=== PATIENT | female | born 1945 | race Caucasian/White ===

== ENCOUNTER → 2017-02-10 | Outpatient (CLI) | payer OTHER | LOC: BHFA 15:00 | PROVIDERS: ATTEND Internal Medicine Cardiovascular Disease | DX: R68.89 Other general symptoms and signs (principal) ==

== ENCOUNTER 2017-05-08 19:13 | Emergency (ER) | payer OTHER ==
[2017-05-08 19:24] VITALS: RESP 16; TEMP 98.2
--- NOTE | 2017-05-08 20:33 | EDPHY ---
H & P Stated Complaint: [facility] fall 05/06; Hx of osteoporosis, sent by PCP Time Seen by Provider: 05/08/17 20:21 HPI/ROS: CHIEF COMPLAINT: Fall HISTORY OF PRESENT ILLNESS: 72-year-old female with multiple medical comorbidities including osteoporosis, states that 2 days ago while she was walking down some bleachers she slipped and fell backward onto her right hip, she is complaining of right hip pain the general location right greater trochanter, right shoulder pain, right anterior lower rib pain, thoracic and lumbar pain. No pelvic pain, no pubic ramus pain. No head injury. No dyspnea. No abdominal pain. No nausea or vomiting. No peripheral paresthesia , weakness, numbness. No midline C-spine pain. PRIMARY CARE PROVIDER: Dr. Dixon REVIEW OF SYSTEMS: A ten point review of systems was performed and is negative with the exception of the items mentioned in the HPI PAST MEDICAL/SURGICAL HISTORY: Osteoporosis. Cholecystectomy. Kyphoplasty. No anticoagulant use SOCIAL HISTORY: PHYSICAL EXAM 1) GENERAL: Well-developed, well-nourished, alert and oriented. Appears to be in no acute distress. Answering questions appropriately. 2) HEAD: Normocephalic, atraumatic 3) HEENT: Pupils equal, round, reactive to light bilaterally. Negative Horners. Nasopharynx, oropharynx, clear. No deformity or angulation of nose. No septal hematoma. No rhinorrhea. No oral trauma. Ears bilaterally with normal tympanic membranes. No hemotympanum. No fluid or blood in the external auditory canal. No raccoon eyes. No Wilson sign. Teeth are normally aligned with no gross malocclusion, TMJ bilaterally nontender, facial bones nontender including the zygomatic arch, maxilla mandible. 4) NECK: No cervical collar is on. Posterior cervical spine is nontender, no stepoff, no effusion. Full range of motion which does not elicit any midline cervical spine pain, no posterior midline tenderness, no step-off. 5) LUNGS: Clear to auscultation bilaterally, no wheezes, no rhonchi, no retractions. No obvious signs of trauma. Is tender to palpation right anterior axillary line lower ribs no visible signs of trauma. No flaring, no grunting. Moving symmetrically. No crepitus. 6) HEART: Regular rate and rhythm, 7) ABDOMEN: No guarding, no rebound, no focal tenderness, no peritoneal signs, no signs of trauma, no ecchymosis 8) MUSCULOSKELETAL: Tender to palpation right anterior shoulder with full range of motion albeit with pain with range of motion. No step-off. Remainder of right upper extremity is nontender. Right scapula nontender. Tender to palpation right greater trochanter. No deformity no angulation no shortening no malrotation. Distal DP PT pulses present and brisk. Soft compartments. Remainder of right femur nontender. Pubic ramus bilaterally nontender. Moving all extremities, no focal areas of tenderness, no obvious trauma. 9) BACK: Patient unable to fully differentiate true midline versus just lateral of midline mid thoracic and mid lumbar pain. No visible signs of trauma. , no fluctuance, no step-off, no obvious trauma, no visual or palpable abnormality. 10) SKIN: No laceration. No abrasion DIFFERENTIAL DIAGNOSIS: in no particular order including but not limited to fracture, sprain, dislocation - Personal History Current Tetanus/Diphtheria Vaccine: No - Medical/Surgical History Hx Asthma: No Hx Chronic Respiratory Disease: No Hx Diabetes: No Hx Cardiac Disease: No Hx Renal Disease: No Hx Cirrhosis: No Hx Alcoholism: No Hx HIV/AIDS: No Hx Splenectomy or Spleen Trauma: No Other PMH: PSHx: kyphoplasty, cholecystectomy, eyelid, cataract, hysterectomy, other unk. PMHx: osteoporosis, Kinney's esophagus, hypothyroid, peroneal nerve surface neuropathy - Social History Smoking Status: Never smoked Constitutional: Initial Vital Signs Temperature (C) 36.8 C 05/08/17 19:17 Heart Rate 93 05/08/17 19:17 Respiratory Rate 16 05/08/17 19:17 Blood Pressure 166/100 H 05/08/17 19:17 O2 Sat (%) 97 05/08/17 19:17 O2 Delivery Mode Room Air Allergies/Adverse Reactions: diazepam [From Valium] Allergy (Intermediate, Verified 07/06/12 15:38) Hives aspirin [From Percodan] Allergy (Verified 07/06/12 16:54) HIVES/LIGHTHEADEDNESS buprenorphine [From Butrans] Allergy (Verified 07/06/12 15:39) MIGRAINES cimetidine Allergy (Verified 07/06/12 16:45) STOMACH CRAMPS clonazepam [From Klonopin] Allergy (Verified 07/06/12 16:51) GI PROB codeine [Codeine] Allergy (Verified 07/06/12 15:38) MIGRAINES doxepin HCl [From Sinequan] Allergy (Verified 07/06/12 16:56) HALLUCINATIONS duloxetine HCl [From Cymbalta] Allergy (Verified 07/06/12 16:48) Diarrhea metaxalone [From Skelaxin] Allergy (Verified 07/06/12 16:56) MIGRAINES milnacipran HCl [From Savella] Allergy (Verified 07/06/12 16:55) AFFECTED MEMORY NSAIDS (Non-Steroidal Anti-Inflamma Allergy (Verified 07/06/12 15:39) STOMACH PROB oxycodone HCl [From Percodan] Allergy (Verified 07/06/12 16:54) HIVES/LIGHTHEADEDNESS oxycodone terephthalate [From Percodan] Allergy (Verified 07/06/12 16:54) HIVES/LIGHTHEADEDNESS salsalate [From Disalcid] Allergy (Verified 07/06/12 16:48) LOSS OF HEARING simvastatin [From Zocor] Allergy (Verified 07/06/12 15:41) MIGRAINES sulindac [From Clinoril] Allergy (Verified 07/06/12 16:45) NAUSEA tizanidine HCl [From Zanaflex] Allergy (Verified 07/06/12 17:04) FELT TRAPPED IN CAGE-MIGRAINES tolmetin sodium [From Tolectin] Allergy (Verified 07/06/12 17:01) INTERNAL BLEEDING zolpidem tartrate [From Ambien] Allergy (Verified 07/06/12 15:41) BLURRED VISION SNYTHETHIC HORMONES Allergy (Severe, Uncoded 07/06/12 16:44) ASTHMA ATENOLOL Allergy (Uncoded 07/06/12 15:40) CLICKING IN MITRALVALVE HALOTEX Allergy (Uncoded 07/06/12 16:50) BREAK OUTS ON FACE Home Medications: Medication Instructions Recorded ACETAMINOPHEN 05/08/17 AMITRIPTYLINE HCL 05/08/17 Bempedoic Acid 05/08/17 CALCIUM 05/08/17 Colace 05/08/17 Forteo 05/08/17 Krill Oil 300 mg Softgel 05/08/17 Multi-Vitamin Daily 05/08/17 Omeprazole-Bicarb 20-1,100 Cap 05/08/17 Synthroid 50 mcg (*) 05/08/17 Vitamin D3 05/08/17 Medical Decision Making - Diagnostics Imaging Results: Imaging Impressions Lumbar Spine X-Ray 05/08/17 20:29 Impression: 1. Old, mild compression deformity of T12, unchanged from 2016. 2. Osteoporosis. Recommend DEXA bone mineral densitometry. Thoracic Spine X-Ray 05/08/17 20:29 Impression: 1. Previous vertebroplasty of vertebra plana of T4. 2. Mild compression deformities at other levels are unchanged from 2016. Images reviewed myself ED Course/Re-evaluation: 10:59 p.m.: Imaging studies interpreted by staff radiologist Dr. Singh show no fracture, specifically no spinal fracture. I apologized to the patient for the delay. She has an appointment with her primary care provider tomorrow that I recommend she keep. Plan will be discharge with usual customary discharge precautions and instructions. Departure - Departure Disposition: Home, Routine, Self-Care Clinical Impression: Fall Qualifiers: Encounter type: initial encounter Qualified Code(s): W19.XXXA - Unspecified fall, initial encounter Condition: Good Instructions: Fall Prevention (ED) Additional Instructions: Return to the ER if you develop new worsening symptoms Referrals: Susan Dixon MD [Primary Care Provider] - 1 day without fail (Keep your appointment with Dr. Nanette Dixon tomorrow)
[2017-05-08 23:06] VITALS: BP 149/86; PULSE 80; O2SAT 94
== END 2017-05-08 23:15 | disposition home or self-care (01) ==
DX: S79.911A Unspecified injury of right hip, initial encounter (principal); W01.0XXA Fall on same level from slipping, tripping and stumbling without subsequent striking against object, initial encounter

== ENCOUNTER → 2017-05-27 | Outpatient (CLI) | payer OTHER | LOC: FIMAGING 13:22 | PROVIDERS: ATTEND Neurological Surgery | DX: M54.12 Radiculopathy, cervical region (principal); M54.16 Radiculopathy, lumbar region; M48.54XA Collapsed vertebra, not elsewhere classified, thoracic region, initial encounter for fracture ==

== ENCOUNTER → 2018-06-02 | Outpatient (CLI) | payer OTHER | LOC: GIMAGING 08:59 | PROVIDERS: ATTEND Family Medicine | DX: M25.512 Pain in left shoulder (principal); R91.8 Other nonspecific abnormal finding of lung field | CPT/HCPCS: 73030-PO; 73060-PO ==

== ENCOUNTER → 2018-10-17 | Outpatient (CLI) | payer OTHER | LOC: FIMAGING 15:35 | PROVIDERS: ATTEND Internal Medicine Critical Care Medicine | DX: J40 Bronchitis, not specified as acute or chronic (principal) ==